=== PATIENT | female | born 2000 | race Caucasian/White ===

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

== ENCOUNTER 2021-06-23 20:31 | Emergency (ER) | payer MEDICAID ==
[2021-06-23] MEDS ORDERED: Bacitracin Oint 1 GM U/D Packet TOP ONE (20:39)
[2021-06-23] MEDS ORDERED: Lidocaine 1% 5 ML VIAL INJECT ONE (20:39)
[2021-06-23 20:52] VITALS: BP 136/95; PULSE 109
== END 2021-06-23 21:13 | disposition home or self-care (01) ==
LOC: JP.ED 20:31
DX: S61.211A Laceration without foreign body of left index finger without damage to nail, initial encounter (principal); Z88.1 Allergy status to other antibiotic agents; W26.0XXA Contact with knife, initial encounter
CPT/HCPCS: 12002; 99281; 99282-25

== ENCOUNTER 2022-03-04 04:30 | Emergency (ER) | payer MEDICAID, OTHER ==
[2022-03-04] MEDS ORDERED: fentaNYL 100 MCG/2 ML SDV IVPUSH ONE (04:51)
[2022-03-04] MEDS ORDERED: Sodium Chloride 0.9% 10 ML Syringe FLUSH PRN (04:51)
[2022-03-04] MEDS ORDERED: fentaNYL 50 MCG/ML SDV IVPUSH ONE (05:28)
[2022-03-04 05:36] LABS: ESTIMATED GFR 132 mL/min (>60)
[2022-03-04] MEDS ORDERED: Ketorolac 30 MG/ML SDV IVPUSH ONE (06:05)
[2022-03-04] MEDS ORDERED: Acetaminophen/HYDROcodone 325-5 MG Tab PO ONE (07:24)
[2022-03-04 07:36] VITALS: BP 126/96; PULSE 81
== END 2022-03-04 07:42 | disposition home or self-care (01) ==
LOC: JP.ED 04:30
DX: O03.9 Complete or unspecified spontaneous abortion without complication (principal); Z88.1 Allergy status to other antibiotic agents; Z88.5 Allergy status to narcotic agent
CPT/HCPCS: 36415; 76801; 80048; 84702; 85025; 96374; 96375; 96376; 99284; A9270; J1885; J3010; J3490

== ENCOUNTER 2022-09-04 23:48 | Emergency (ER) | payer MEDICAID, OTHER ==
[2022-09-05 00:17] VITALS: BP 124/63; PULSE 89
== END 2022-09-05 01:36 | disposition home or self-care (01) ==
LOC: JP.ED 23:48
DX: S70.02XA Contusion of left hip, initial encounter (principal); Z86.16 Personal history of COVID-19; Z88.1 Allergy status to other antibiotic agents; Z88.5 Allergy status to narcotic agent; W19.XXXA Unspecified fall, initial encounter
CPT/HCPCS: 99283

== ENCOUNTER 2024-01-03 06:37 | Emergency (ER) | payer MEDICAID, OTHER ==
[2024-01-03] MEDS: Morphine 2 MG/ML SYRINGE IVPUSH ONE (07:31)
[2024-01-03 07:33] LABS: BASOPHILS ABSOLUTE AUTO 0.05 K/uL (0.00-0.10); BASOPHILS PERCENT AUTO 0.4 % (0.1-1.3); EOSINOPHILS ABSOLUTE AUTO 0.15 K/uL (0.00-0.40); EOSINOPHILS PERCENT AUTO 1.3 % (0.0-5.4); HEMATOCRIT 43.3 % (34.3-46.0); HEMOGLOBIN 15.5 g/dL (11.2-15.5); IMMATURE GRAN ABSOLUTE AUTO 0.05 K/uL (0.00-0.23); IMMATURE GRAN PERCENT AUTO 0.4 % (0.0-0.7); LYMPHOCYTES ABSOLUTE AUTO 2.88 K/uL (0.8-3.3); LYMPHOCYTES PERCENT AUTO 24.7 % (11.4-47.7); MEAN CORPUSCULAR HEMOGLOBIN 32.4 pg (31.6-35.5); MEAN CORPUSCULAR HGB CONC 35.8 g/dL (31.6-35.5); MEAN CORPUSCULAR VOLUME 90.6 fL (81.4-99.0); MONOCYTES ABSOLUTE AUTO 0.69 K/uL (0.20-0.90); MONOCYTES PERCENT AUTO 5.9 % (3.3-12.6); NEUTROPHILS ABSOLUTE AUTO 7.83 K/uL (1.0-7.6); NEUTROPHILS PERCENT AUTO 67.3 % (40.0-78.1); PLATELET COUNT,PLT 391 K/uL (130-375); RED BLOOD CELL COUNT 4.78 M/uL (3.77-5.24); WHITE BLOOD CELL COUNT,WBC 11.7 K/uL (3.2-11.0)
[2024-01-03 07:53] LABS: A/G RATIO 1.3 (1.2-2.2); ALANINE AMINOTRANSFERASE,ALT 24 U/L (12-78); ALBUMIN 4.7 g/dL (3.4-5.0); ALKALINE PHOSPHATASE 89 U/L (46-116); ANION GAP 11.5 mmol/L (5.0-14.0); ASPARTATE AMNIOTRANSFERASE,AST 9 U/L (15-37); BILIRUBIN TOTAL 0.7 mg/dL (0.2-1.0); BLOOD UREA NITROGEN,BUN 21 mg/dL (7-18); CALCIUM 9.9 mg/dL (8.5-10.1); CARBON DIOXIDE,CO2 28 mmol/L (21-32); CHLORIDE,CL 101 mmol/L (100-108); CREATININE 0.7 mg/dL (0.6-1.0); EST CRCL DRUG DOSING (CG) 108.86 mL/min; ESTIMATED GFR 125 mL/min (>60); GLUCOSE RANDOM 139 mg/dL (74-106); POTASSIUM,K 4.2 mmol/L (3.6-5.2); PROTEIN TOTAL,TP 8.2 g/dL (6.4-8.2); SODIUM,NA 140 mmol/L (140-148)
[2024-01-03 08:26] VITALS: BP 105/64; PULSE 87
== END 2024-01-03 08:40 ==
LOC: JP.ED 06:37
DX: S42.022A Displaced fracture of shaft of left clavicle, initial encounter for closed fracture (principal); Z88.1 Allergy status to other antibiotic agents; Z88.5 Allergy status to narcotic agent; V86.56XA Driver of dirt bike or motor/cross bike injured in nontraffic accident, initial encounter
CPT/HCPCS: 36415; 71045; 73000; 80053; 81025; 85025; 96374; 96375; 99285; J2270; J3360

== ENCOUNTER 2024-04-30 15:58 | Emergency (ER) | payer MEDICAID ==
[2024-04-30 16:21] VITALS: BP 133/82; PULSE 110
== END 2024-04-30 17:09 | disposition home or self-care (01) ==
LOC: JP.ED 15:58
DX: S90.31XA Contusion of right foot, initial encounter (principal); Z86.16 Personal history of COVID-19; Z88.6 Allergy status to analgesic agent; Z88.5 Allergy status to narcotic agent; W22.8XXA Striking against or struck by other objects, initial encounter
CPT/HCPCS: 73630-26-RT; 73630-RT; 99283